=== PATIENT | male | born 1985 | race Caucasian/White ===

== ENCOUNTER 2020-05-31 13:17 | Emergency (ER) | payer OTHER, SELFPAY ==
[2020-05-31 13:41] VITALS: BP 121/80; PULSE 94; RESP 18; TEMP 35.9; O2SAT 99
--- NOTE | 2020-05-31 14:05 | ED.EAR ---
HPI - Ear Problem General Chief complaint: Ear Stated complaint: Rodrigo ear pain/Severe headache Source: patient and RN notes reviewed Mode of arrival: ambulatory Limitations: no limitations History of Present Illness HPI Narrative: This is a 34-year-old white male that presented to urgent care with complaints of bilateral ear pain according to patient a couple of weeks ago he developed pain to his right ear and 2 days ago he started to get pain to his left ear. Patient did take [id number] lidocaine drops to his ear in Tylenol for the help that he had developed due to the pain. Patient does not have a history of otitis media. The patient denies SOB, CP, palpitation, extremity numbness, lightheadedness, dizziness, constipation, hearing loss or deficiency diarrhea, chills, or fever. Related Data Home Medications Medication Instructions Recorded Confirmed divalproex PO 05/31/20 propranolol PO 05/31/20 tramadol mg 05/31/20 venlafaxine mg PO 05/31/20 Allergies Allergy/AdvReac Type Severity Reaction Status Date / Time No Known Allergies Allergy Verified 05/31/20 13:31 Review of Systems Review of Systems: All systems reviewed & are unremarkable except as noted in HPI and below (10 point system review) [facility] Social History Social History Gender identity (if verbalized by the patient): Male Exam Narrative: Exam Narrative: GENERAL: This is a well-nourished, well-developed patient, in no apparent distress. HEAD: normocephalic, atraumatic. EYES: PERRL. Sclera clear/white. Vision is grossly intact. EARS: Canals edematous and erythema TMs cloudy without perforation. No discharge noted hearing grossly intact. NOSE: External nose normal with no obvious nasal discharge, nares without redness, no rhinorrhea. THROAT: Mucous membranes moist, posterior pharynx clear. NECK: Neck supple, non-tender without lymphadenopathy, masses or thyromegaly. CARDIOVASCULAR: Regular rate and rhythm without murmurs, gallops, or rubs. RESPIRATORY: Clear to auscultation. Breath sounds equal bilaterally. No wheezes, rales, or rhonchi. GASTROINTESTINAL: Abdomen soft, non-tender, nondistended. Bowel sounds are active. No hepato-splenomegaly, or palpable masses. No guarding. SKIN: warm, intact with no suspicious lesions or rash, good texture and turgor. NEURO: awake, alert, and oriented to person, place and time. There were no obvious focal neurologic abnormalities. Steady gait EXTREMITIES: Normal range of motion. No edema. No calf tenderness. Negative Homans sign bilaterally. BACK: Nontender without deformity or crepitance. No flank tenderness. Course Vital Signs Vital signs: Vital Signs Temperature 96.6 F L 05/31/20 13:41 Pulse Rate 94 05/31/20 13:41 Respiratory Rate 18 05/31/20 13:41 Blood Pressure 121/80 05/31/20 13:41 Pulse Oximetry 99 05/31/20 13:41 Temperature 96.6 F L 05/31/20 13:41 Pulse Rate 94 05/31/20 13:41 Respiratory Rate 18 05/31/20 13:41 Blood Pressure 121/80 05/31/20 13:41 Pulse Oximetry 99 05/31/20 13:41 Medical Decision Making Differential Diagnosis Differential Diagnosis: Otitis media, sinusitis, otitis externa Vital Signs Vital Signs: Vital Signs Temperature 96.6 F L 05/31/20 13:41 Pulse Rate 94 05/31/20 13:41 Respiratory Rate 18 05/31/20 13:41 Blood Pressure 121/80 05/31/20 13:41 Pulse Oximetry 99 05/31/20 13:41 Temperature 96.6 F L 05/31/20 13:41 Pulse Rate 94 05/31/20 13:41 Respiratory Rate 18 05/31/20 13:41 Blood Pressure 121/80 05/31/20 13:41 Pulse Oximetry 99 05/31/20 13:41 Discharge Plan Discharge Clinical Impression: Otitis media Qualifiers: Otitis media type: unspecified Chronicity: acute Qualified Code(s): H66.90 - Otitis media, unspecified, unspecified ear Patient Disposition: Home, Self-Care Condition: Stable Instructions: Antibiotic Form, Ear Infection
== END 2020-05-31 14:05 | disposition home or self-care (01) ==
PROVIDERS: Emergency Provider Nurse Practitioner
DX: H66.93 Otitis media, unspecified, bilateral (principal)
CPT/HCPCS: 99213; G0463

== ENCOUNTER 2021-07-04 15:52 | Emergency (ER) | payer OTHER, SELFPAY ==
--- NOTE | ~2021-07-04 | XR_ITS ---
EXAMINATION: XR chest 2V DATE: 07/04/2021 16:28 INDICATION: Productive cough and shortness of breath TECHNIQUE: PA and lateral views of the chest are obtained. COMPARISON: None available FINDINGS: The lungs are free of acute opacities. There is no pleural effusion or pneumothorax. The ca rdiomediastinal silhouette is normal. An old left third rib fracture is noted. IMPRESSION: 1. No acute cardiopulmonary abnormality. Reviewed, dictated and finalized at location B. [employer]
[2021-07-04 16:00] VITALS: BP 125/81; PULSE 93; RESP 16; TEMP 36.6; O2SAT 99
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
== END 2021-07-04 16:58 | disposition home or self-care (01) ==
PROVIDERS: Emergency Provider Nurse Practitioner Family
DX: J20.9 Acute bronchitis, unspecified (principal)
CPT/HCPCS: 71046; 99213; G0463

== ENCOUNTER 2022-05-03 08:06 | Emergency (ER) | payer OTHER, SELFPAY ==
--- NOTE | 2022-05-03 08:23 | ED.EAR ---
HPI - Ear Problem General Chief complaint: Ear Stated complaint: ear pain Time Seen by Provider: 05/03/22 08:27 Source: patient, RN notes reviewed and old records reviewed Mode of arrival: ambulatory Limitations: no limitations History of Present Illness HPI Narrative: 36 year old male who presents to [facility] care with complaints of bilateral ear pain for one week duration with decreased hearing some sinus drainage but denies any known fevers. Patient states that he has taken some OTC cold medication and took some Ibuprofen.Patient denies any acute cough,no shortness of breath, body aches or any chills. MD Complaint: ear pain Location: bilateral Discharge from ear: Reports no Associated symptoms ear: decreased hearing Treatment prior to arrival: oral analgesic Related Data Home Medications Medication Instructions Recorded Confirmed divalproex 500 mg tablet,extended 1,000 mg PO DIRECTED 05/31/20 05/03/22 release 24 hr venlafaxine 150 mg 225 mg PO DAILY 05/31/20 05/03/22 capsule,extended release 24 hr fremanezumab-vfrm 225 mg/1.5 mL 225 mg subcut DIRECTED 05/03/22 05/03/22 subcutaneous auto-injector (Ajovy) Allergies Allergy/AdvReac Type Severity Reaction Status Date / Time No Known Allergies Allergy Verified 05/03/22 08:28 Review of Systems Review of Systems: CONSTITUTIONAL: Denies malaise, chills, sweats, or fever. EYES: Denies visual changes, redness, or discharge. ENT: Reports rhinorrhea, congestion, no sinus pain, bilateral otalgia no sore throat. CARDIOVASCULAR: Denies chest pain, palpitations, or edema. RESPIRATORY: Reports smoker cough.? Denies dyspnea. GASTROINTESTINAL: Denies abdominal pain, nausea, vomiting, diarrhea SKIN: Denies rash or itching. MUSCULOSKELETAL: Denies myalgia. NEUROLOGIC: Denies headache. All systems reviewed & are unremarkable except as noted in HPI and below PMFSH Social History Social History (Updated 05/06/22 @ 09:16 by Leyla Ackerman NP) Smoking status: Current every day smoker Gender identity (if verbalized by the patient): Male Comments At time of signature, agree with nursing past medical, surgical, social and family history. There is no relevant family history pertinent to the presenting complaint Exam Narrative: GENERAL: Well-appearing, well-nourished, and in no acute distress. HEAD: Normocephalic EYES: PERRLA, conjunctivae clear ENT: Nares clear, turbinates edematous and erythematous, clear discharge. Mucous membranes moist. Bilateral TM red bulging with fluid noted decreased hearing; no tragal tenderness. Oropharynx erythematous without lesions. Tonsils not enlarged and without exudate, no drooling, no hoarseness, no trismus, uvula midline. NECK: Supple. No lymphadenopathy CHEST: Clear to auscultation, breath sounds equal. No wheezing, rhonchi, rales, or stridor. No respiratory distress, speaks in full sentences. Dry cough SaO2 99% on room air HEART: Regular rate and rhythm. No murmur heard. SKIN: Warm, dry, no rash. NEURO: Alert and oriented x3. PSYCH: Normal mood and affect Course Course Emergency Course: Patient is aware of diagnosis, understands and agrees to treatment plan.? Anticipatory guidance given.? Patient agrees to follow-up as directed and is aware of reasons to seek care at the emergency department. Portions of this record may have been created with voice recognition software Level of Care: Express Care Visit Vital Signs Vital signs: Vital Signs Temperature 36.7 C 05/03/22 08:24 Pulse Rate 116 H 05/03/22 08:24 Respiratory Rate 16 05/03/22 08:24 Blood Pressure 123/83 05/03/22 08:24 Pulse Oximetry 99 05/03/22 08:24 Oxygen Delivery Room Air 05/03/22 08:24 Temperature 36.7 C 05/03/22 08:24 Pulse Rate 116 H 05/03/22 08:24 Respiratory Rate 16 05/03/22 08:24 Blood Pressure 123/83 05/03/22 08:24 Pulse Oximetry 99 05/03/22 08:24 Oxygen Delivery Room Air
[2022-05-03 08:24] VITALS: BP 123/83; PULSE 116; RESP 16; TEMP 36.7; O2SAT 99
== END 2022-05-03 09:13 | disposition home or self-care (01) ==
PROVIDERS: Emergency Provider Registered Nurse
DX: H66.93 Otitis media, unspecified, bilateral (principal); F17.200 Nicotine dependence, unspecified, uncomplicated
CPT/HCPCS: 99213; G0463

== ENCOUNTER 2022-07-30 16:25 | Emergency (ER) | payer OTHER, SELFPAY ==
--- NOTE | 2022-07-30 16:43 | ED.URI ---
HPI - URI/Sore Throat General Chief Complaint: Upper Respiratory Infection Stated Complaint: uri Time Seen by Provider: 07/30/22 16:43 Source: patient, RN notes reviewed and old records reviewed Mode of arrival: ambulatory Limitations: no limitations History of Present Illness HPI Narrative: 36-year-old male presents to the [facility] with complaints of sinus congestion, right ear pain, decreased hearing of the right ear for 16 days. No treatment prior to arrival Onset (ago): day(s) (16) Related Data Home Medications Medication Instructions Recorded Confirmed divalproex 500 mg tablet,extended 1,000 mg PO DIRECTED 05/31/20 07/30/22 release 24 hr venlafaxine 150 mg 225 mg PO DAILY 05/31/20 07/30/22 capsule,extended release 24 hr Allergies Allergy/AdvReac Type Severity Reaction Status Date / Time No Known Allergies Allergy Verified 07/30/22 16:28 Review of Systems Review of Systems: All systems reviewed & are unremarkable except as noted in HPI and below Constitutional: Constitutional: Reports no additional constitutional complaints Eyes: Eyes: Reports no additional eye complaints ENT: Reports as per HPI Cardiovascular: Cardiovascular: Reports no additional cardiovascular complaints, Denies chest pain and Denies dyspnea Respiratory: Respiratory: Reports no additional respiratory complaints, Denies chest congestion, Denies cough and Denies dyspnea Gastrointestinal: Gastrointestinal: Reports no additional gastrointestinal complaints, Denies abdominal pain, Denies nausea and Denies vomiting Musculoskeletal: Musculoskeletal: Reports no additional musculoskeletal complaints Integumentary/Breasts: Skin/Breast: Reports system reviewed and no additional complaints, except as docu Neurologic: Reports system reviewed and no additional complaints, except as documented Psychiatric: Psychiatric: Reports no additional psychiatric complaints Allergic/Immunologic: Allergic/Immunologic: Reports no additional allergic/immunologic complaints PMFSH Social History Social History Smoking status: Current every day smoker Gender identity (if verbalized by the patient): Male Comments At the time of my signature, I reviewed and agree with the nursing past medical, surgical, social, and family history. There is no relevant family history pertinent to the patient complaint. Exam Const: General: cooperative, healthy appearing, comfortable, no acute distress, well developed, alert and well nourished Nutritional Appearance: well nourished Orientation/consciousness: patient oriented x3 Limitations: no limitations HENMT: Head: normal to inspection Ears: hearing grossly normal bilaterally, external ears normal, EAC's normal and TM abnormal bulging on the right, wth effusion serous on the right and erythematous on the left Face/Nose/Sinus: Normal external nose present, Normal nares present, Normal nasal mucous membranes and turbinates present and normal facial exam Face and sinus: normal facial exam Mouth: Yes Normal oral and palatal mucosa present, Yes lip normal and Yes moist mucous membranes Throat: posterior oropharynx normal and uvula midline Eyes: General: appearance normal, both eyes and all related structures Alignment and Position: alignment normal Periorbital: periorbital findings normal Conjunctivae: conjunctivae normal Pupils: Equal, round and reactive pupils present EOM: EOMs intact bilaterally Neck: Neck: normal visual inspection, full ROM, no lymphadenopathy and no meningeal signs Chest: Chest palpation & inspection: normal inspection of the chest Resp: Effort & Inspection: normal respiratory effort and able to speak in complete sentences Auscultation: clear to auscultation bilaterally, no crackles, no rales, no rhonchi and no wheezes Cardio: Rate: regular rate Rhythm: regular rhythm Back/Spine/Pelvis: Cervical Spine: cervical ROM normal Thora
[2022-07-30 16:50] VITALS: BP 123/77; PULSE 98; RESP 20; TEMP 36.6; O2SAT 98
== END 2022-07-30 17:20 | disposition home or self-care (01) ==
PROVIDERS: Emergency Provider Nurse Practitioner
DX: H66.92 Otitis media, unspecified, left ear (principal); J32.9 Chronic sinusitis, unspecified; H65.01 Acute serous otitis media, right ear
CPT/HCPCS: 99213; G0463

== ENCOUNTER 2024-02-02 16:16 | Emergency (ER) | payer OTHER, SELFPAY ==
[2024-02-02 16:23] VITALS: BP 130/97; PULSE 97; RESP 20; TEMP 36.2; O2SAT 99
--- NOTE | 2024-02-02 16:29 | ED.URI ---
HPI - URI/Sore Throat General Chief Complaint: Upper Respiratory Infection Stated Complaint: Sore Throat/Ears Irritation Time Seen by Provider: 02/02/24 16:25 Source: patient Mode of arrival: ambulatory Limitations: no limitations History of Present Illness HPI Narrative: Rodrigo is a 38-year-old male patient presenting to the clinic today with complaints of sore throat, bilateral ear pain, cough, and nasal congestion that started this morning. He denies any fever or chills. Denies any chest pain or shortness of breath. MD elicited complaint: cough, sore throat and nasal congestion Related Data Home Medications Medication Instructions Recorded Confirmed divalproex 500 mg tablet,extended 1,000 mg PO DIRECTED 05/31/20 07/30/22 release 24 hr venlafaxine 150 mg 225 mg PO DAILY 05/31/20 07/30/22 capsule,extended release 24 hr Allergies Allergy/AdvReac Type Severity Reaction Status Date / Time No Known Allergies Allergy Verified 07/30/22 16:28 Review of Systems Review of Systems: Pertinent positives per HPI. Patient denies any fever, chills, rash, headache, visual changes, dizziness, shortness of breath, chest pain, palpitations, nausea, vomiting, diarrhea, constipation, abdominal pain, or any urinary issues. PMFSH Social History Social History Smoking status: Current every day smoker Gender identity (if verbalized by the patient): Male Comments At the time of my signature, I reviewed and agree with the nursing past medical, surgical, social, and family history. There is no relevant family history pertinent to the patient complaint. Exam Narrative: General: Well-developed, well nourished, in no apparent distress Head: Normocephalic, atraumatic Eyes: Pupils equally round and reactive to light bilaterally, EOM intact, sclera and conjunctive clear, no discharge, lids normal Ears: TMs intact and congested, ear canals clear, no drainage, grossly hearing normal. Nose: Nares patent, clear nasal discharge, no inflammation, no sinus tenderness. Mouth: Oral pharynx red without lesions or masses, good dentition, MMM. Postnasal drip Neck: Supple, trachea midline, no enlargement of anterior or posterior cervical nodes, no thyroid masses or goiter palpable. Cardio: Regular rate and rhythm, s1 and s2 normal, no murmur appreciated. Resp: Clear to auscultation bilaterally, no rhonchi, rales, wheezing or rubs Course Course Emergency Course: Portions of this record may have been created with voice recognition software. Level of Care: Express Care Visit Vital Signs Vital signs: Vital Signs Temperature 36.2 C L 02/02/24 16:23 Pulse Rate 97 02/02/24 16:23 Respiratory Rate 20 02/02/24 16:23 Blood Pressure 130/97 H 02/02/24 16:23 Pulse Oximetry 99 02/02/24 16:23 Oxygen Delivery Room Air 02/02/24 16:23 Temperature 36.2 C L 02/02/24 16:23 Pulse Rate 97 02/02/24 16:23 Respiratory Rate 20 02/02/24 16:23 Blood Pressure 130/97 H 02/02/24 16:23 Pulse Oximetry 99 02/02/24 16:23 Oxygen Delivery Room Air 02/02/24 16:23 Vital signs reviewed MDM - URI/Sore Throat MDM Narrative Medical decision making narrative: At the time of visit patient is resting comfortably on the exam table. Patient appears to be nontoxic. Labs: COVID, influenza, and strep test were all negative in the clinic today. We will send strep for culture. Plan: I suspect patient has URI/pharyngitis. Supportive measures were discussed with the patient and they voiced understanding discharge instructions and agrees to treatment plan. Return precautions reviewed Differential Diagnosis Differential diagnosis: Likely upper respiratory infection, otitis media, sinusitis, viral infection, bronchitis, influenza, pharyngitis and other (COVID) Discharge Plan Discharge Clinical Impression: Upper respiratory infection Qualifiers: URI type: unspec
[2024-02-02 16:47] LABS: EDSTREPNEGPOS1 Negative (Negative)
[2024-02-02 16:56] LABS: EDCOVIDSCREEN Negative (Negative); EDINFLUASCREEN Negative (Negative); EDINFLUBSCREEN Negative (Negative)
== END 2024-02-02 16:59 | disposition home or self-care (01) ==
PROVIDERS: Emergency Provider Nurse Practitioner Family
DX: J06.9 Acute upper respiratory infection, unspecified (principal); J02.9 Acute pharyngitis, unspecified; Z20.822 Contact with and (suspected) exposure to COVID-19; F17.200 Nicotine dependence, unspecified, uncomplicated
CPT/HCPCS: 87081; 87426; 87804; 87880; 99213; G0463

== ENCOUNTER 2024-02-19 15:53 | Emergency (ER) | payer OTHER, SELFPAY ==
[2024-02-19 15:59] VITALS: BP 134/91; PULSE 92; RESP 16; TEMP 36.8; O2SAT 99
--- NOTE | 2024-02-19 16:28 | ED_ITS ---
HPI - General Adult General Chief complaint: Medical Clearance Stated complaint: post seizure exam Time Seen by Provider: 02/19/24 16:17 Source: patient and RN notes reviewed Mode of arrival: ambulatory Limitations: no limitations History of Present Illness HPI narrative: Patient presents today requesting a note to return to work. He missed work today as he had a seizure this morning between 530 and 6:00 a.m.. The details of his seizure are unknown. He has not had a seizure for 8-9 years, but does have a seizure disorder for which he takes Depakote. His medications are managed by his psychiatrist, but states he has not had a Depakote level drawn in some time. He just started a new job and has not been sleeping well, and this may have contributed to his seizure. States he slept most of the day and is feeling well. Reports that he does have a neurologist a [facility] but has not seen them for a while. Related Data Home Medications Medication Instructions Recorded Confirmed divalproex 500 mg tablet,extended 1,000 mg PO DIRECTED 05/31/20 02/19/24 release 24 hr venlafaxine 150 mg 225 mg PO DAILY 05/31/20 02/19/24 capsule,extended release 24 hr fremanezumab-vfrm 225 mg/1.5 mL See Rx Instructions .Route .COMPLEX 02/19/24 02/19/24 subcutaneous auto-injector (Ajovy) hydroxyzine pamoate 25 mg capsule See Rx Instructions .Route .COMPLEX 02/19/24 02/19/24 propranolol 20 mg tablet 20 mg PO DAILY 02/19/24 02/19/24 Allergies Allergy/AdvReac Type Severity Reaction Status Date / Time No Known Allergies Allergy Verified 02/19/24 15:55 Review of Systems Review of Systems: CONSTITUTIONAL: Denies body aches, fever, chills, or sweats. EYES: Denies visual changes, redness, or discharge. ENT: Denies rhinorrhea, congestion, sore throat, or otalgia. CARDIOVASCULAR: Denies chest pain, palpitations, or edema. RESPIRATORY: Denies cough or dyspnea. GASTROINTESTINAL: Denies abdominal pain, nausea, vomiting, or diarrhea. GENITOURINARY: Denies dysuria or hematuria. SKIN: Denies rash, itching, or wounds. MUSCULOSKELETAL: Denies back pain, joint pain, or myalgia. NEUROLOGIC: Denies headache, numbness, tingling, or weakness. PSYCH: Denies depression or anxiety. FORMERLY [facility], 1928–1983 Past Medical History Medical History (Updated 02/19/24 @ 16:36 by Thuy Hermosillo, [employer], ) Seizure disorder Social History Social History Smoking status: Current every day smoker Gender identity (if verbalized by the patient): Male Exam Narrative: GENERAL: Well-appearing, well-nourished, and in no acute distress. HEAD: Normocephalic, atraumatic. EYES: EOMI. PERRL. No redness or drainage. Conjunctivae normal. ENT: Mucous membranes pink and moist. NECK: Normal AROM. CHEST: No respiratory distress. Clear to auscultation. HEART: Regular rate and rhythm. No murmur appreciated. Normal peripheral pulses. EXTREMITIES: Normal range of motion. No edema. SKIN: Warm, dry, no rash. Capillary refill normal. Normal skin turgor. NEURO: No focal deficits. Alert and oriented x3. Gait steady. 5/5 strength in BLE and BUE PSYCH: Normal affect. No signs of depression or anxiety. Course Course Level of Care: Express Care Visit Vital Signs Vital signs: Vital Signs Temperature 98.3 F 02/19/24 15:59 Pulse Rate 92 02/19/24 15:59 Respiratory Rate 16 02/19/24 15:59 Blood Pressure 134/91 H 02/19/24 15:59 Pulse Oximetry 99 02/19/24 15:59 Oxygen Delivery Room Air 02/19/24 15:59 Temperature 98.3 F 02/19/24 15:59 Pulse Rate 92 02/19/24 15:59 Respiratory Rate 16 02/19/24 15:59 Blood Pressure 134/91 H 02/19/24 15:59 Pulse Oximetry 99 02/19/24 15:59 Oxygen Delivery Room Air 02/19/24 15:59 Reviewed Medical Decision Making MDM Narrative Medical decision making narrative: Discussed with patient that he needs to have a Depakote level drawn for which he needs talk to his doctor. He does not wish to go to the ER this evening to be evaluated. Patient will be provided a work note to return to work, but with restrictions for driving, operating heavy machinery, and water precautions. Patient agrees with this plan. Recommend neurology follow-up. He also agrees with making an appointment. Differential Diagnosis Differential Diagnosis: Seizure disorder Vital Signs Vital Signs: Vital Signs Temperature 98.3 F 02/19/24 15:59 Pulse Rate 92 02/19/24 15:59 Respiratory Rate 16 02/19/24 15:59 Blood Pressure 134/91 H 02/19/24 15:59 Pulse Oximetry 99 02/19/24 15:59 Oxygen Delivery Room Air 02/19/24 15:59 Temperature 98.3 F 02/19/24 15:59 Pulse Rate 92 02/19/24 15:59 Respiratory Rate 16 02/19/24 15:59 Blood Pressure 134/91 H 02/19/24 15:59 Pulse Oximetry 99 02/19/24 15:59 Oxygen Delivery Room Air 02/19/24 15:59 Critical Care Time Critical Care Time Critical Care Time: No Discharge Plan Discharge Clinical Impression: Seizure disorder Patient Disposition: Home, Self-Care Condition: Stable Instructions: Epilepsy (DC) Additional Instructions: Rest today. Please contact your psychiatrist to have a Depakote level drawn. Please contact your neurologist for follow-up and clearance to start driving etc. Go to the ER immediately if your seizures become more frequent or with any additional concerns. Your blood pressure was elevated above 120/80 today at Urgent Care. This puts you above the threshold for follow up. Please schedule a followup visit with your personal physician as soon as possible, for further evaluation and treatment. Even blood pressure exceeding 120/80 may indicate pre-hypertension. Prescriptions: No Action propranolol 20 mg tablet 20 mg PO DAILY hydroxyzine pamoate 25 mg capsule See Rx Instructions .ROUTE .COMPLEX Rx Instructions: Rx Ajovy Autoinjector 225 mg/1.5 mL auto-injector See Rx Instructions .ROUTE .COMPLEX Rx Instructions: Rx venlafaxine 150 mg capsule,extended release 24hr 225 mg PO DAILY divalproex 500 mg tablet extended release 24 hr 1,000 mg PO DIRECTED Follow-up/Referrals: [facility] [Primary Care Provider] - Marylou Walter MD [Physician] - Stand Alone Forms: Work/School Release IP Time of Disposition: 16:34
== END 2024-02-19 16:40 | disposition home or self-care (01) ==
PROVIDERS: Emergency Provider Nurse Practitioner
DX: G40.909 Epilepsy, unspecified, not intractable, without status epilepticus (principal); F17.200 Nicotine dependence, unspecified, uncomplicated
CPT/HCPCS: 99212; G0463

== ENCOUNTER 2024-08-03 15:29 | Emergency (ER) | payer OTHER, SELFPAY ==
[2024-08-03 15:37] VITALS: BP 117/88; PULSE 114; RESP 20; TEMP 36.8; O2SAT 99
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
== END 2024-08-03 15:55 | disposition short-term general hospital (02) ==
LOC: EXPCOLL 15:31
PROVIDERS: Emergency Provider Nurse Practitioner; PCP Physician Assistant
DX: S05.92XA Unspecified injury of left eye and orbit, initial encounter (principal); X58.XXXA Exposure to other specified factors, initial encounter; H16.132 Photokeratitis, left eye; F17.200 Nicotine dependence, unspecified, uncomplicated; G40.909 Epilepsy, unspecified, not intractable, without status epilepticus
CPT/HCPCS: 99212; G0463